=== PATIENT | female | born 1985 | race Caucasian/White ===

== ENCOUNTER 2024-04-16 16:06 | Emergency (ER) | payer BC ==
[~2024-04-16] VITALS: Ht 165.1 cm; Wt 87.5 kg
[2024-04-16 17:36] VITALS: BP 144/63
== END 2024-04-16 17:36 | disposition home or self-care (01) ==
LOC: ED 16:06
DX: S90.32XA Contusion of left foot, initial encounter (principal); W20.8XXA Other cause of strike by thrown, projected or falling object, initial encounter
CPT/HCPCS: 73630; 99283

== ENCOUNTER 2024-10-10 18:40 | Emergency (ER) | payer BC ==
[~2024-10-10] VITALS: Ht 165.1 cm; Wt 91.8 kg
[2024-10-10] MEDS ORDERED: DASETTA1 EACH PO (19:00)
[2024-10-10 19:51] LABS: BASOPHILS 0.6 % (0.1-1.2); EOSINOPHILS 2.5 % (0.7-5.8); LYMPHOCYTES 32.3 % (19.3-51.7); MCH 30.0 PG (25.6-32.2); MCHC 33.5 g/dL (32.2-35.5); MCV 89.6 fL (79.4-94.8); MONOCYTES 8.6 % (4.7-12.5); NEUTROPHILS 55.7 % (34.0-71.1); RBC 4.43 M/uL (3.93-5.22)
[2024-10-10 19:57] LABS: INR 0.96 (0.80-1.30); PROTIME 12.1 Sec (11.2-14.2)
[2024-10-10 20:02] LABS: ALT (SGPT) 17.0 U/L (14-59); AST (SGOT) 13.0 U/L (15-37); GLOMERULAR FILTRATION RATE,EST 82.0 mL/min (>60); PROTEIN, TOTAL 6.7 g/dL (6.4-8.2); UREA NITROGEN 14.0 mg/dL (7-18)
[2024-10-10] MEDS ORDERED: TRANEXAMIC ACI650 MG PO (20:48)
[2024-10-10] MEDS ORDERED: CEPHALEXIN500 M1 PO (20:50)
[2024-10-10] MEDS ORDERED: PREDNISONE20 MG PO (20:53)
[2024-10-10] MEDS ORDERED: CEPHALEXIN MONOHYDRATE 500 MG HOME.PACK PO ONE (21:00)
[2024-10-10 21:04] VITALS: BP 155/93
== END 2024-10-10 21:05 | disposition home or self-care (01) ==
LOC: ED 18:40
PROVIDERS: Family Medicine
DX: I80.02 Phlebitis and thrombophlebitis of superficial vessels of left lower extremity (principal); N92.0 Excessive and frequent menstruation with regular cycle; Z79.3 Long term (current) use of hormonal contraceptives
CPT/HCPCS: 36415; 80053; 84703; 85025; 85610; 99283; A9270

== ENCOUNTER 2024-11-23 07:50 | Emergency (ER) | payer BC ==
[~2024-11-23] VITALS: Ht 165.1 cm; Wt 87.5 kg
[~2024-11-23 07:50] MED LIST: CEPHALEXIN500 M1 PO; DASETTA1 EACH PO; PREDNISONE20 MG PO; TRANEXAMIC ACI650 MG PO
[2024-11-23] MEDS ORDERED: LISINOPRIL-HCT1 EAC2 PO (08:11)
[2024-11-23] MEDS ORDERED: IBUPROFEN 800 MG TAB PO ONE (08:30)
[2024-11-23 08:47] VITALS: BP 114/88
[2024-11-23] MEDS ORDERED: HYDROCODON-ACE1 EA10 PO (09:31)
== END 2024-11-23 08:45 | disposition home or self-care (01) ==
LOC: ED 07:50
DX: S93.402A Sprain of unspecified ligament of left ankle, initial encounter (principal); Z79.890 Hormone replacement therapy; Z79.899 Other long term (current) drug therapy; X50.1XXA Overexertion from prolonged static or awkward postures, initial encounter
CPT/HCPCS: 73610; 99283; A9270

== ENCOUNTER 2025-01-03 05:49 | Day surgery (SDC) | payer BC ==
--- NOTE | 2024-12-26 17:54 | EKG ---
[facility] [address] [facility] [place], [place] [address] Signed Normal sinus rhythm Normal ECG No previous ECGs available Confirmed by Marina Rosa DO ([id number]) on 12/26/2024 5:54:04 PM Electronically Signed By: MARINA ROSA DO 12/26/24 1754 PATIENT NAME: SHARON PEREIRA Electrocardiogram DATE OF : 89 PHYSICIAN: MARINA ROSA DO REPORT #: [id number] REPORT IS CONFIDENTIAL AND NOT TO BE RELEASED WITHOUT AUTHORIZATION
[2025-01-03] VITALS (10 sets, daily range): BP systolic 99–126; BP diastolic 58–92
[~2025-01-03] VITALS: Ht 165.1 cm; Wt 86.0 kg
[~2025-01-03 05:49] MED LIST changes: +HYDROCODON-ACE1 EA10 PO; +LACTATED RINGER'S 1,000 ML IV SCH; +LISINOPRIL-HCT1 EAC2 PO
[2025-01-03] MEDS ORDERED: IBUPROFEN400 MG PO (06:08)
[2025-01-03] MEDS ORDERED: BUPIVACAINE HCL 0.5% 30 ML VIAL ONE (06:41)
[2025-01-03] MEDS ORDERED: estradioL 0.01% 42.5 GM TUBE ONE (06:42)
[2025-01-03] MEDS ORDERED: GEL LUBRICATING MULTI-INGRED LARGE TUBE ONE (06:42)
[2025-01-03] MEDS ORDERED: LIDOCAINE 1% W/ EPI 1:200,000 30 ML SDV ONE (06:46)
[2025-01-03] MEDS ORDERED: CEFAZOLIN SODIUM 2 GM in SODIUM CHLORIDE 0.9% 100 ML IV SCH (07:00)
[2025-01-03] MEDS ORDERED: LIDOCAINE HCL 1% 5 ML SDV INJ ONE (07:00)
[2025-01-03] MEDS ORDERED: IBLOOD GLUCOSE TEST STRIP 1 EA TEST VI PRN ×2 (07:00→08:45)
[2025-01-03] MEDS ORDERED: ROCURONIUM BROMIDE 50 MG/5 ML SYR ONE ×2 (07:18→09:20)
[2025-01-03] MEDS ORDERED: LIDOCAINE HCL 2% 20 MG/ML VIAL INJ ONE (07:18)
[2025-01-03] MEDS ORDERED: SUGAMMADEX SODIUM 200 MG/2 ML ML ONE (07:18)
[2025-01-03] MEDS ORDERED: KETOROLAC TROMETHAMINE 30 MG/ML VIAL ONE (07:18)
[2025-01-03] MEDS ORDERED: MAGNESIUM SULFATE 1 GM/2 ML VIAL ONE (07:18)
[2025-01-03] MEDS ORDERED: DEXAMETHASONE SOD PHOS 4 MG/ML VIAL ONE (07:18)
[2025-01-03] MEDS ORDERED: LIDOCAINE HCL 2% 5 ML SDV ONE (07:18)
[2025-01-03] MEDS ORDERED: KETAMINE in NS 50 MG/5 ML SYR ONE (07:22)
[2025-01-03] MEDS ORDERED: MIDAZOLAM HCL 2 MG/2 ML VIAL ONE (07:23)
[2025-01-03] MEDS ORDERED: fentaNYL citrate 50 MCG/ML SDV IV PRN (08:45)
[2025-01-03] MEDS ORDERED: PROCHLORPERAZINE EDISYLATE 10 MG/2 ML VIAL IV PRN (08:45)
[2025-01-03] MEDS ORDERED: NALOXONE HCL 0.4 MG SYR IV PRN ×2 (08:45→10:00)
[2025-01-03] MEDS ORDERED: HYDROmorphone HCL 1 MG/ML SYR IV PRN (08:45)
[2025-01-03] MEDS ORDERED: GLYCOPYRROLATE 1 MG/5 ML MDV ONE (08:49)
[2025-01-03] MEDS ORDERED: OXYCODONE/APAP 5/325 TAB PO PRN (10:00)
[2025-01-03] MEDS ORDERED: FAMOTIDINE 20 MG/ 2 ML VIAL IV PRN (10:00)
[2025-01-03] MEDS ORDERED: FAMOTIDINE 20 MG TAB PO PRN (10:00)
[2025-01-03] MEDS ORDERED: MAGNESIUM HYDROXIDE/AL HYDROX 30 ML CUP PO PRN (10:00)
[2025-01-03] MEDS ORDERED: SIMETHICONE 80 MG CHEW PO PRN (10:00)
[2025-01-03] MEDS ORDERED: MORPHINE SULFATE 10 MG/ML VIAL IV PRN (10:00)
[2025-01-03] MEDS ORDERED: SENNOSIDES/DOCUSATE 1 EA TAB PO SCH (10:00)
--- NOTE | 2025-01-03 10:12 | NUR ---
01/03/25 Reji2 Phylicia Madison 5601- PT PRESENTS TO PACU, SEMI ROOT POSITION, NON REACTIVE TO STIMULUS. OPA IN PLACE, BREATHING EVEN AND NON LABORED, O2 AT 6L PER MASK. ABD SOFT, NON DISTENDED. JACKIE PAD IN PLACE, NO BLEEDING NOTED, VAGINAL PACKING IN PLACE. LR INFUSING TO LH IV. ALL MONITORS IN PLACE. 0956- PT REACTIVE TO TACTILE STIMULUS, OPENS EYES, NOTED CONTACTS TO BE IN PLACE. PT HAS NYSTAGMUS AND APPEARS CONFUSED, PT REORIENTED TO TIME AND PLACE, OPA REMOVED, O2 LEFT IN PLACE. PT BACK TO SLEEP. 1003- PT CONTINUES TO REST, MOVED TO ROOM AIR AT THIS TIME. 1006- DR BARKER AT BEDSIDE, PT TURNS HEAD TO VOICE, OPENS EYES SOME AND THEN CLOSES. PT NODS HEAD THAT SHE CAN HEAR HIM. PT STILL HAS NYSTAGMUS AT THIS TIME.
--- NOTE | 2025-01-03 11:15 | NUR ---
1105- PT REPORT RECIEVED FROM GROOVER AND STRIPER OPERATOR. PT PRESENTS DROWSY BUT AROUSABLE TO VERBAL STIMULI. RESP EQUAL AND NON LABOURED. PT SATES "A LITTLE BIT" WHEN ASKED IF NAUSEOUS AND RESUMES RESTING WITH EYES CLOSED. PT REPORTS PAIN 5/[address] UNTIL [address] UNTIL PT IS AMBULATORY PER MD. PACKING IN PLACE FORM IN CHART AND SIGNED BY RNs. IV AND VITALS NOTED. WATER AND CRACKERS PROVIDED AT BEDSIDE. PT UPDATED ON DC CRITERIA. PT AND FAMILY MEMBER VOICED UNDERSTANDING. CALL LIGHT IN REACH.
--- NOTE | 2025-01-03 12:27 | NUR ---
1205- PT RESTED FOR FIRST HR. PT AWOKE WITH VERBAL STIMULI. PT HAD SYSTOLIC BP BETWEEN 106-95 THROUGH OUT FIRST HOUR OF PHASE II RECOVERY. MAP VARIED BETWEEN 71-69. PT BP RECIRCULATED EVERY 15MIN TO MONITOR. CURRENT VITALS NOTED. PT REPORTED 8/10 PAIN. RN ELEVATED HOB TO 30 SO PT COULD DRINK WATER AND EAT CRACKERS. PT DENIES NAUSEA. MEDICATION FOR PAIN MANAGEMENT GIVEN PER EMAR. PT TOLERATING ORAL INTAKE WELL. NEW HOT PACK PROVIDED FOR COMFORT. NO OTHER NEEDS VOICED AT THIS TIME. AT BEDSIDE. CALL LIGHT IN REACH.
[2025-01-03] MEDS ORDERED: SIMETHICONE 80 MG CHEW PO SCH (13:00)
--- NOTE | 2025-01-03 13:31 | NUR ---
1325- PT RESTING IN BED WITH EYE CLOSED. PT RESPONDS TO VERBAL STIMULI. PT REPORTS 7/10 PAIN AND "A LITTLE BIT" OF NAUSEA. PT DSCRIBES PAIN BAD PERIOD CRAMPS OR CONTRACTIONS. SIPPING ON WATER WHEN ENCOURAGED. IV, PACKING, AND VS NOTED. SYSTOLIC BP HAS MAINTAINED AT 99 FROM [id number]. NEW BAG 1000ML OF LR STARTED. PT REPORTS NO NEEDS AT THIS TIME. CALL LIGHT IN REACH.
[2025-01-03] MEDS ORDERED: SEVOFLURANE 250 ML BTL INH ONE (14:25)
--- NOTE | 2025-01-03 15:32 | NUR ---
1420- PT REPORTS 9/10 PAIN AND SHOWS MILD EMOTIONAL DISTRESS. PT SYSTOLIC BP 112 AND PT PRESENTS AWAKE AND A DECREASE IN DROWSINESS. 1434- MED GIVEN FOR PAIN MANAGEMENT PER EMAR. 1455- PT REPORTS PAIN IS A 4/10 AND IS RESTING COMFORTABLY. PT ABLE TO SIT SELF AT EDGE OF BED, STAND, AMBULATE TO OTHER SIDE OF BED, SIT, AND GET BACK INTO BED SAFELY WITH MINIMAL TO NO ASSISTANCE. MANTILLA REMOVED PER ORDERS. 10ML REMOVED FROM BALLOON AND 200ML CLEAR YELLOW URINE WAS PRESENT IN MANTILLA BAG UPON REMOVAL. 1500- PACKING REMOVED PER ORDERS. NO BLEEDING PRESENT UPON REMOVAL. MESH UNDERWEAR AND PERIPAD IN PLACE. 1525- MD NOTIFIED OF PT STATUS. MD TO SEE PT AND DISCUSS DC PLANS.
--- NOTE | 2025-01-03 15:46 | OR ---
[facility] [address] [place], [place] [address] Signed DATE OF OPERATION: 01/03/2025 SURGEON: Luciano Ortega MD PREOPERATIVE DIAGNOSES: 1. Menorrhagia. 2. Abnormal uterine bleeding. 3. Pelvic pain. 4. Dyspareunia. POSTOPERATIVE DIAGNOSES: 1. Menorrhagia. 2. Abnormal uterine bleeding. 3. Pelvic pain. 4. Dyspareunia. PROCEDURE: Total vaginal hysterectomy, left salpingectomy. FINDINGS: Ten week size uterus. Normal-appearing left fallopian tube. Right fallopian tube not visualized. Normal ovaries bilaterally. ANESTHESIA: General plus local. WASTE CHOPPER: None. IV FLUIDS: 800 mL crystalloid. ESTIMATED BLOOD LOSS: 60 mL. URINE OUTPUT: 60 mL, clear urine. DRAINS: Valdez to gravity. Electronically Signed By: LUCIANO ORTEGA MD 01/03/25 1546 PATIENT NAME: SHARON PEREIRA OPERATIVE REPORT DATE OF : [birth year] REPORT #: [id number] PHYSICIAN: LUCIANO ORTEGA MD PCP: NO PRIMARY CARE PHYSICIAN REPORT IS CONFIDENTIAL AND NOT TO BE RELEASED WITHOUT AUTHORIZATION [facility] [address] [place], [place] [address] Signed SPECIMENS: Uterus with cervix, left fallopian tube. COUNTS: Correct x2. COMPLICATIONS: None apparent. TECHNIQUE IN DETAIL: With informed consent and negative hCG, patient was taken to the operating room where she was given general anesthesia via rapid sequence and placement of endotracheal tube. She was given intravenous Ancef per protocol and her lower extremities were also placed in SCD pneumatic compression devices for DVT prophylaxis. Her lower extremities were placed in Yellowfin stirrups. She underwent a brief exam under anesthesia and she was then prepped and draped in sterile fashion. Time-out was also performed per protocol. The posterior weighted speculum was placed in the vagina. The cervical vaginal reflection was identified anteriorly and marked with the electrocautery device. The rectovaginal junction posteriorly was also identified and marked with electrocautery. 20 mL of 1% lidocaine with epinephrine were then injected circumferentially around the cervix. Using electrocautery, the cervix was incised circumferentially. We then focused our attention anteriorly and elevated the anterior vaginal mucosa and sharp dissection was used to dissect away the overlying anterior cervical vaginal mucosa from the cervix. Once we had created an appropriate plane I used my finger to bluntly dissect away superiorly and this tissue came down with ease. I then placed the right angle retractor anteriorly and I was able to visualize the anterior peritoneal reflection. I then grasped it with and made an incision thereby entering the anterior cul-de-sac. A small amount of serous fluid escaped. A riding retractor was then placed into this space and there was direct visualization of intestinal fat more anteriorly. I then placed an I and O catheter in the bladder and approximately 50 mL of clear urine were emptied from the bladder. Attention was then turned posteriorly. The rectovesical mucosa was grasped and pulled away from the cervix. Sharp dissection was used to create and enlarge this plane. Once we obtained the posterior peritoneum Farley scissors were used to incise the peritoneum and the posterior cul-de-sac was entered. This opening was enlarged with blunt dissection and a long posterior weighted speculum was placed. The patient was placed in a little bit more Trendelenburg position at this point. Using a curved Negrito clamp the left uterosacral ligament was clamped, cut, and suture Electronically Signed By: LUCIANO ORTEGA MD 01/03/25 1546 PATIENT NAME: SHARON PEREIRA OPERATIVE REPORT DATE OF : [birth year] REPORT #: [id number] PHYSICIAN: LUCIANO ORTEGA MD PCP: NO PRIMARY CARE PHYSICIAN REPORT IS CONFIDENTIAL AND NOT TO BE RELEASED WITHOUT AUTHORIZATION [facility] [address] [place], [place] [address] Signed ligated with 0 Vicryl suture. This ligature was then tagged with straight hemostats. Same procedure was carried out on the right uterosacral ligament. The right cardinal ligament, which included the uterine artery was clamped, cut, and suture ligated with 0 Vicryl. We then performed the same on the left cardinal ligament incorporating the left uterine artery as well. Another bite of the cardinal ligament on the left was taken and the pedicle was ligated with 0 Vicryl. Same procedure was carried out on the opposite side. At this point, we were able to flip the uterus posteriorly with the use of Alexander thyroid clamps. The tubo-ovarian ligament was identified and using Negrito was clamped. We performed the same clamping procedure on the opposite side. Farley scissors were then used to cut across the tubo-ovarian ligament on both sides and the uterus with cervix were removed. The left tubo-ovarian pedicle was then suture ligated with 0 Vicryl and this pedicle was flashed to scratch this tissue together a bit. We then placed a second 0 Vicryl stitch on the left tubo-ovarian ligament and ligated this pedicle. We performed the same on the opposite side. These ligatures were tagged. The pedicles were inspected and found to be hemostatic. At this point, we identified the left fallopian tube and using the hand-held LigaSure device, and a maximal portion of the left fallopian tube that we could obtain was removed with the ligature. The tubo-ovarian pedicles were inspected again and good hemostasis was noted, so the suture ligature was then cut on both sides and released. A special note, I was unable to identify right fallopian tube. At this point, the pedicles were inspected and were all noted to be hemostatic. The posterior vaginal cuff was slightly oozy as per the norm. I then used a 2-[address] a running lock stitch across the posterior vagina. I made an assessment of hemostasis again. Good hemostasis was noted. I then closed the vaginal cuff starting anteriorly and moving in the posterior direction. I incorporated the peritoneum for the first four, five stitches. I did use an 0 Vicryl in a running locked fashion. I of course paid very careful attention to any bowel or any other structures that might have tried to present themselves at the opening and free needle passage was noted the entire time. At this point, the cuff was closed and so we placed an estradiol laden vaginal pack. A Valdez catheter was also placed and approximately 10 mL of additional urine was released. DISPOSITION: The patient was extubated in the operating room and she was taken to the recovery room in stable condition. Luciano Ortega MD Electronically Signed By: LUCIANO ORTEGA MD 01/03/25 1546 PATIENT NAME: SHARON PEREIRA OPERATIVE REPORT DATE OF : [birth year] REPORT #: [id number] PHYSICIAN: LUCIANO ORTEGA MD PCP: NO PRIMARY CARE PHYSICIAN REPORT IS CONFIDENTIAL AND NOT TO BE RELEASED WITHOUT AUTHORIZATION [address], [place] [address] Signed /[facility] /[id number] Copies: ~ Electronically Signed By: LUCIANO ORTEGA MD 01/03/25 1546 PATIENT NAME: SHARON PEREIRA OPERATIVE REPORT DATE OF : [birth year] REPORT #: [id number] PHYSICIAN: LUCIANO ORTEGA MD PCP: NO PRIMARY CARE PHYSICIAN REPORT IS CONFIDENTIAL AND NOT TO BE RELEASED WITHOUT AUTHORIZATION
--- NOTE | 2025-01-03 16:04 | NUR ---
1404- AT BEDSIDE DISCUSSING PLAN WITH PT. PT TO STAY OVER NIGHT FOR OBSERVATION AND PAIN MANAGEMENT.
--- NOTE | 2025-01-03 16:14 | NUR ---
1610 VERBAL ORDER TAKEN FROM DR BARKER TO ADMIT PATIENT TO FLOOR. SUBMITTED VIA MEDITACH AND HOUSE SUP CALLED. ROOM 115 FOR PT. 1615 PT USED CALL LIGHT TO ALERT RN THAT PT HAD BECOME NAUSEOUS AND VOMITIED, PT VOMITED 400 MLS OF GREENISH VOMIT INTO EMESIS BAG. PT REPORTS NO NAUSEA NOW THAT SHE HAS THROWN UP.
--- NOTE | 2025-01-03 17:03 | NUR ---
1648- REPORT GIVEN TO AJAY OSMAN. PT SELF TRANSFERED TO BED WITHOUT ISSUES OR ASSISTANCE. PT WAS AWAKE AND PRESENTED CALM DURING PT HAND OFF. PT TUCKED INTO BED, SIDE RAILS UP, AND BED IN LOWEST POSITION. AJAY RN AT BEDSIDE UPON DS RN LEAVING PT ROOM. CARE TURNED OVER AT THIS TIME.
--- NOTE | 2025-01-03 17:06 | NUR ---
PT ARRIVES FROM PACU WITH RN ON STRETCHER AT 1448, THIS RN RECEIVED REPORT FROM SAKINA AT BEDSIDE. PT ABLE TO STAND AND GET OFF STRETCHER AND MOVE TO BED WITH SBA. PAIN 6/10 AT THIS TIME, DENIES NAUSEA. VS STABLE, WT 91.1KG. PRESENT AT BEDSIDE WHEN PATIENT ARRIVED. PER PROMOTION MANAGER, PACKIN HAS BEEN REMOVED, PAD IN PLACE WITH MINIMAL BLEEDING. WARM PACK TO ABDOMEN UPON ARRIVAL. PT DENIES ANY NEEDS AT THIS TIME, WOULD LIKE DINNER TONIGHT. NO OTHER CONCERNS, CALL LIGHT WITHIN REACH. PRIMARY RN PEYTON GIVEN REPORT WHEN ARRIVED BACK TO FLOOR.
--- NOTE | 2025-01-03 17:35 | NUR ---
PATIENT REPORTING PAIN AND NAUSEA. DR BARKER CONTACTED DUE TO PATIENT WITH NO ORDERS FOR ANTI NAUSEA MEDICATION. MD WITH TELEPHONE ORDER FOR ZOFRAN 4MG IV Q6 PRN 1ST CHOICE AND PHENERGAN 12.5MG IV Q6 PRN 2ND CHOICE. WITH NO FURTHER ORDERS AT THIS TIME. CALL ENDED.
[2025-01-03] MEDS ORDERED: PROMETHAZINE HCL 50 MG/ML SDV IM PRN (17:45)
--- NOTE | 2025-01-03 19:24 | NUR ---
PT LAYING IN BED, EYES CLOSED, UNLABORED BREATHING. CPOX ON AT BEDSIDE SATS AT 96%, CALL LIGHT WITHIN REACH, RECIEVED REPORT FROM PEYTON.
--- NOTE | 2025-01-03 20:44 | NUR ---
DEAN OF GRADUATE STUDIES OBTAINED VITALS AND I&O. PT STATES NO NEEDS AT THIS TIME. CALL LIGHT WITHIN REACH.
--- NOTE | 2025-01-03 21:01 | NUR ---
PT REPORTS PAIN 4/10 IN SURGICAL SITE, PRN PAIN MED GIVEN. PT ASSISTED TO THE BATHROOM WITH SBA, NEW JACKIE PAD GIVEN. PT BACK TO BED, NO OTHER NEEDS AT THIS TIME, CRACKERS AND WATER GIVEN.
--- NOTE | 2025-01-03 23:15 | NUR ---
PT LAYING ON R SIDE, EYES CLOSED, UNLABORED BREATHING. CPOX ON AT BEDSIDE, CALL LIGHT WITHIN REACH.
--- NOTE | 2025-01-04 00:40 | NUR ---
PT LAYING IN BED, REPORTS NO PAIN, LIGHT TURNED OFF, PT REPORTS SHE IS GOING TO SLEEP. NO NEEDS AT THIS TIME, CALL LIGHT WITHIN REACH.
[2025-01-04 01:25] VITALS: BP 119/72
--- NOTE | 2025-01-04 01:25 | NUR ---
PT UP TO BATHROOM WITH SBA, BACK TO BED. CPOX ON AT BEDSIDE, PT REPORTS NO PAIN, VS TAKEN, CALL LIGHT WITHIN REACH.
--- NOTE | 2025-01-04 03:28 | NUR ---
PT LAYING IN BED, EYES CLOSED, UNLABORED BREATHING. CPOX ON AT BEDSIDE, CALL LIGHT WITHIN REACH.
--- NOTE | 2025-01-04 04:17 | NUR ---
ASSISTED TO BR, PT IS SBA. VOIDS WNL, UO LIGHT PINK. PT CHANGED OWN JACKIE-PAD, FEW SPOTS OF BLOODY DRNG NOTED. PT REPORTED 6/10 ABD PAIN, MEDICATED W/ PRN PERCOCET PER EMAR.
[2025-01-04 06:09] VITALS: BP 119/67
--- NOTE | 2025-01-04 06:10 | NUR ---
TRANSITIONS MANAGER RN OBTAINED VITALS AND I&O. PT SBA TO BATHROOM. PT VOIDED AND ASSISTED BACK TO BED. ICE WATER REFILLED. PT STATES NO FURTHER NEEDS AT THIS TIME. CALL LIGHT WITHIN REACH.
[2025-01-04 06:36] VITALS: BP 119/67
--- NOTE | 2025-01-04 07:10 | NUR ---
REPORT RECIEVED FROM JACQUI BARNHART. PATIENT RESTING IN BED AND IS WITHOUT ANY NEEDS AT THIS TIME. WHITE BOARD UPDATED. CALL LIGHT AND PERSONAL BELONGINGS ARE WITHIN REACH.
--- NOTE | 2025-01-04 08:04 | NUR ---
ANSWERED CALL LIGHT AND ASSISTED PATIENT TO BATHEROOM. OUTPUT RECORDED. PATIENT BACK TO BED, CPOX AT BEDSIDE, CALL LIGHT IN REACH.
[2025-01-04] MEDS ORDERED: COL PO (08:40)
--- NOTE | 2025-01-04 08:49 | NUR ---
MED REC COMPLETE
--- NOTE | 2025-01-04 08:50 | NUR ---
PATIENT RESTING IN BED WITH HER AT BEDSIDE. PATIENT REPORTING 5/10 PAIN AND WOULD LIKE MEDICATION BEFORE DISCHARGE. PATIENT IS WITHOUT FURTHER NEEDS AT THIS TIME. CALL LIGHT AND PERSONAL BELONGINGS ARE WITHIN REACH.
--- NOTE | 2025-01-04 09:00 | NUR ---
PATIENT MEDICATED PER EMAR. PATIENT ASSESSMENT COMPLETED. PATIENT IS WITHOUT FURTHER NEEDS AT THIS TIME. CALL LIGHT AND PERSONAL BELONGINGS ARE WITHIN REACH.
[2025-01-04 09:08] VITALS: BP 125/81
[2025-01-04] MEDS ORDERED: PERCOCET 5-3251 EACH PO (09:09)
--- NOTE | 2025-01-09 17:21 | PATH ---
[facility] [address] [place], [place] [address] Signed SPECIMEN(S): A UTERUS, CERVIX SPECIMEN(S): B LEFT FALLOPIAN TUBE SPECIMEN SOURCE: A. UTERUS, CERVIX B. LEFT FALLOPIAN TUBE CLINICAL HISTORY: Menorrhagia, AUB, dysmenorrhea, pelvic pain FINAL PATHOLOGIC DIAGNOSIS: A. Uterus and cervix, hysterectomy: - Benign squamous epithelium and endocervix, negative for dysplasia. - Benign weakly proliferative type endometrium, negative for hyperplasia and atypia. B. Left fallopian tube, left salpingectomy: - Benign fimbriae and cross sections of fallopian tube. DDF MICROSCOPIC EXAMINATION: Histologic sections of all submitted blocks are examined by light microscopy. These findings, together with the gross examination, support the pathologic diagnosis. GROSS DESCRIPTION: A. The specimen, labeled and designated "Pedro Luis, S., uterus and cervix per requisition," is received in formalin and consists of a 163 g, 10.6 cm fundus to cervix, 6.4 cm cornu to cornu, 5.3 cm anterior to posterior uterus with absent bilateral adnexa. The serosal surface is bobo-pink and smooth. The attached cervix measures 3.6 x 3.1 cm and has a 1.2 cm slitlike os. The endometrial canal measures 4.5 x 3.3 cm and has a bobo-pink endometrium averaging 0.2 cm in thickness. The myometrium averages 1.5 cm in thickness and is bobo-pink and trabecular. There are no discrete masses or polyps identified. Light Truck Driver sections are submitted as follows: Cassette Summary: (A1) anterior and posterior cervix (A2) anterior and posterior endomyometrium B. The specimen, labeled and designated "Pedro Luis, S., portion of left fallopian tube per requisition," is received in formalin and consists of a 2.2 x 0.7 x 0.7 cm violaceous fallopian tube with PATIENT NAME: SHARON PEREIRA PATHOLOGY DATE OF : 89 REPORT #: [id number] PHYSICIAN: ARON PATHOLOGY PCP: NO PRIMARY CARE PHYSICIAN REPORT IS CONFIDENTIAL AND NOT TO BE RELEASED WITHOUT AUTHORIZATION [facility] [address] [place], [place] [address] Signed attached fimbriated end. The serosal surface is smooth with a single paratubal cyst measuring 1.3 cm in greatest dimension. The specimen is serially sectioned revealing a pinpoint lumen. The specimen is entirely submitted in cassette B1. AA (under the direct supervision of a pathologist) The Gross Description was prepared using a voice recognition system. The report was reviewed for accuracy; however, sound-alike word errors, addition and/or deletions may occur. If there is any question about this report, please contact Client Services. ADDITIONAL NOTES: Immunohistochemical and/or in situ hybridization studies if performed in this case included appropriate positive controls that reacted as expected. This test was developed and its performance characteristics determined by [facility]. It has not been cleared or approved by the U.S. Food and Drug Administration. The FDA has determined that such clearance or approval is not necessary. This test is used for clinical purposes. It should not be regarded as investigational or for research. [facility] is certified under the Clinical Laboratory Improvement Amendments of 1988 (CLIA) as qualified to perform high complexity clinical laboratory testing. PERFORMING LABORATORY: Technical component was performed by [facility], [address] [place] [address] (CLIA# [id number]). Professional interpretation was performed by [facility] [address] [facility] [id number] Diagnostician: Vicente Albrecht DO Pathologist Electronically Signed 01/09/2025 Copies: ~ PATIENT NAME: SHARON PEREIRA PATHOLOGY DATE OF : [birth year] REPORT #: [id number] PHYSICIAN: [facility] PCP: NO PRIMARY CARE PHYSICIAN REPORT IS CONFIDENTIAL AND NOT TO BE RELEASED WITHOUT AUTHORIZATION
== END 2025-01-04 09:48 | disposition home or self-care (01) ==
LOC: DS 05:49 → MS 16:48 → DS 01-04 09:48
PROVIDERS: ATTEND Obstetrics & Gynecology
PROC: 0UT67ZZ Resection of Left Fallopian Tube, Via Natural or Artificial Opening (ICD-10-PCS; 2025-01-03)
PROC: 0UT97ZZ Resection of Uterus, Via Natural or Artificial Opening (ICD-10-PCS; principal; 2025-01-03 07:30)
DX: N92.0 Excessive and frequent menstruation with regular cycle (principal); N93.9 Abnormal uterine and vaginal bleeding, unspecified; N94.10 Unspecified dyspareunia; I10 Essential (primary) hypertension
CPT/HCPCS: 00944; 93005; 93010; 94762; 96374; 96375; J0688; J1100; J1171; J1885; J2003; J2250; J2270; J2405; J2704; J3010; J3475; J3490; J7121